=== PATIENT | male | born 1990 | race African-American/Black ===

== ENCOUNTER 2022-06-05 12:49 | Inpatient (IN) | payer OTHER ==
[2022-06-05 13:47] VITALS: BMI 21.5
[2022-06-05] MEDS ORDERED: ONDANSETRON *ODT* 4 MG TABLET SL PRN (14:54)
[2022-06-05] MEDS ORDERED: LOPERAMIDE HCL 2 MG CAPSULE PO PRN (14:54)
[2022-06-05] MEDS ORDERED: DICYCLOMINE HCL 10 MG CAPSULE PO PRN (14:54)
[2022-06-05] MEDS ORDERED: MAGNESIUM HYDROX 2400MG/30ML ORAL SUSPENSION 30 ML CUP PO PRN (14:54)
[2022-06-05] MEDS ORDERED: BISMUTH SUBSALICYLATE 262 MG/15 ML BTL PO PRN (14:54)
[2022-06-05] MEDS ORDERED: IBUPROFEN 400 MG TABLET (FP) PO PRN (14:54)
[2022-06-05] MEDS ORDERED: NICOTINE 10 MG CARTRIDGE (INHALER) IH PRN (14:54)
[2022-06-05] MEDS ORDERED: NICOTINE POLACRILEX 2 MG GUM BUC PRN (14:54)
[2022-06-05] MEDS ORDERED: IBUPROFEN 600 MG TABLET (FP) PO PRN (14:54)
[2022-06-05] MEDS ORDERED: POLYETHYLENE GLYCOL (HEALTHYLAX) 3350 17 GM PACKET PO PRN (14:54)
[2022-06-05] MEDS ORDERED: METHOCARBAMOL 500 MG TABLET PO PRN (14:54)
[2022-06-05] MEDS ORDERED: BENZOCAINE/MENTHOL (CHLORASEPTIC ) LOZENGE MM PRN (14:54)
[2022-06-05] MEDS ORDERED: ACETAMINOPHEN 325 MG TABLET (FP) PO PRN ×2 (14:54)
[2022-06-05] MEDS ORDERED: MAG HYDROX/AL HYDROX/SIMETH 30 ML UNIT-DOSE CUP PO PRN (14:54)
[2022-06-05] MEDS ORDERED: hydrOXYzine PAMOATE 25 MG CAPSULE (FP) PO PRN (14:54)
[2022-06-05] MEDS: NICOTINE 7 MG/24 HOURS TOPICAL PATCH TD SCH (15:58)
[2022-06-05] MEDS ORDERED: THIAMINE HCL 100 MG TABLET (FP) PO SCH (22:00)
[2022-06-05] MEDS ORDERED: MELATONIN 5 MG TABLETS PO SCH (22:00)
[2022-06-06] MEDS ORDERED: PRENATAL VITAMINS W/ FOLIC ACID TABLET (FP) PO SCH (10:00)
[2022-06-06] MEDS: NICOTINE 7 MG/24 HOURS TOPICAL PATCH TD SCH (10:52)
[2022-06-06 11:24] LABS: HEMATOCRIT 39.6 % (35.4-49); HEMOGLOBIN 13.3 GM/dL (11.7-16.9); MCH 29.7 pg (25.7-33.7); MCHC 33.7 g/dl (32.0-35.9); MEAN CELL VOLUME 88.2 fl (80-96); MEAN PLT VOLUME 8.1 fl (7.5-11.1); PLATELET COUNT 376 10^3/uL (134-434); RBC 4.49 M/mm3 (4.00-5.60); RDW 15.2 % (11.9-15.9); WHITE BLOOD COUNT 4.4 K/mm3 (4.0-10.0)
[2022-06-06 11:33] LABS: ALBUMIN 3.5 g/dl (3.4-5.0); BLOOD UREA NITROGEN 10.6 mg/dL (7-18); CALCIUM 8.8 mg/dL (8.5-10.1)
[2022-06-06 11:37] LABS: CREATININE 1.1 mg/dL (0.55-1.3)
[2022-06-06 11:39] LABS: BILIRUBIN,TOTAL 0.8 mg/dL (0.2-1); TOT PROT 6.2 g/dl (6.4-8.2)
[2022-06-06 12:27] LABS: HIV INTERPRETATION NEGATIVE (NEGATIVE)
[2022-06-06 12:57] VITALS: BP 111/71; PULSE 97; RESP 17; TEMP 97.8
== END 2022-06-06 01:43 | disposition other institution (70) | DRG 773 ==
LOC: YASAS 12:49 → Y3N 15:19
PROVIDERS: ADMIT Allergy & Immunology; ATTEND Surgery
PROC: HZ2ZZZZ Detoxification Services for Substance Abuse Treatment (ICD-10-PCS; principal; 2022-06-05)
DX: F15.220 Other stimulant dependence with intoxication, uncomplicated (principal); F11.20 Opioid dependence, uncomplicated; F12.20 Cannabis dependence, uncomplicated; F17.210 Nicotine dependence, cigarettes, uncomplicated; G47.00 Insomnia, unspecified; R73.9 Hyperglycemia, unspecified
CPT/HCPCS: 36415; 80053; 85027; 86593; 86780; 87389; 87811; 93005; 93010; C9803-CS; U0003; U0005

== ENCOUNTER 2022-06-06 14:51 | Inpatient (IN) | payer OTHER ==
[2022-06-06 17:06] VITALS: BMI 21.5
[2022-06-06] MEDS ORDERED: guaiFENesin 200 MG/10 ML 10 ML UNIT-DOSE CUPS PO PRN (17:36)
[2022-06-06] MEDS ORDERED: BENZOCAINE/MENTHOL (CHLORASEPTIC ) LOZENGE MM PRN (17:36)
[2022-06-06] MEDS ORDERED: IBUPROFEN 400 MG TABLET (FP) PO PRN (17:36)
[2022-06-06] MEDS ORDERED: POLYETHYLENE GLYCOL (HEALTHYLAX) 3350 17 GM PACKET PO PRN (17:36)
[2022-06-06] MEDS ORDERED: MAG HYDROX/AL HYDROX/SIMETH 30 ML UNIT-DOSE CUP PO PRN (17:36)
[2022-06-06] MEDS ORDERED: MAGNESIUM HYDROX 2400MG/30ML ORAL SUSPENSION 30 ML CUP PO PRN (17:36)
[2022-06-06] MEDS ORDERED: P-EPHED 60MG/TRIPROLIDI 2.5MG TABLET PO PRN (17:36)
[2022-06-06] MEDS ORDERED: ACETAMINOPHEN 325 MG TABLET (FP) PO PRN (17:36)
[2022-06-06] MEDS ORDERED: LOPERAMIDE HCL 2 MG CAPSULE PO PRN (17:36)
[2022-06-06] MEDS: MELATONIN 5 MG TABLETS PO PRN (21:21)
[2022-06-06] MEDS: THIAMINE HCL 100 MG TABLET (FP) PO SCH (21:21)
[2022-06-07] MEDS: PRENATAL VITAMINS W/ FOLIC ACID TABLET (FP) PO SCH (09:30)
[2022-06-07] MEDS: THIAMINE HCL 100 MG TABLET (FP) PO SCH (21:13)
[2022-06-07] MEDS: MELATONIN 5 MG TABLETS PO PRN (21:13)
[2022-06-08] MEDS: PRENATAL VITAMINS W/ FOLIC ACID TABLET (FP) PO SCH (09:53)
[2022-06-08] MEDS: MELATONIN 5 MG TABLETS PO PRN (21:18)
[2022-06-08] MEDS: THIAMINE HCL 100 MG TABLET (FP) PO SCH (21:18)
[2022-06-09] MEDS: PRENATAL VITAMINS W/ FOLIC ACID TABLET (FP) PO SCH (10:55)
[2022-06-09] MEDS ORDERED: COLLOIDAL OATMEAL 1 BAR EACH TP PRN (12:51)
[2022-06-09] MEDS: THIAMINE HCL 100 MG TABLET (FP) PO SCH (21:13)
[2022-06-09] MEDS: MELATONIN 5 MG TABLETS PO PRN (21:13)
[2022-06-10 06:57] VITALS: BP 112/80; PULSE 85; RESP 16; TEMP 97.9
[2022-06-10] MEDS: PRENATAL VITAMINS W/ FOLIC ACID TABLET (FP) PO SCH (09:20)
== END 2022-06-10 17:00 | disposition home or self-care (01) | DRG 772 ==
LOC: YASAS 14:51 → Y3E 16:58
PROVIDERS: ADMIT Allergy & Immunology; ATTEND Allergy & Immunology
PROC: HZ42ZZZ Group Counseling for Substance Abuse Treatment, Cognitive-Behavioral (ICD-10-PCS; principal; 2022-06-06)
DX: F15.20 Other stimulant dependence, uncomplicated (principal); F11.20 Opioid dependence, uncomplicated; F17.210 Nicotine dependence, cigarettes, uncomplicated; F32.A Depression, unspecified; F41.9 Anxiety disorder, unspecified; G47.00 Insomnia, unspecified; B35.3 Tinea pedis; R73.9 Hyperglycemia, unspecified; Z86.19 Personal history of other infectious and parasitic diseases
CPT/HCPCS: 82962

== ENCOUNTER 2023-01-02 13:12 | Inpatient (IN) | payer OTHER ==
[2023-01-02 13:25] VITALS: BMI 21.5
[2023-01-03] MEDS ORDERED: BENZONATATE 200 MG CAPSULE PO PRN (00:38)
[2023-01-03] MEDS ORDERED: NALOXONE HCL 0.4 MG/ML VIAL IM PRN (00:38)
[2023-01-03] MEDS ORDERED: LOPERAMIDE HCL 2 MG CAPSULE PO PRN (00:38)
[2023-01-03] MEDS ORDERED: NALOXONE HCL (KLOXXADO) 8 MG SPRAY NS PRN (00:38)
[2023-01-03] MEDS ORDERED: IBUPROFEN 600 MG TABLET (FP) PO PRN (00:38)
[2023-01-03] MEDS ORDERED: MAG HYDROX/AL HYDROX/SIMETH 30 ML UNIT-DOSE CUP PO PRN (00:38)
[2023-01-03] MEDS ORDERED: POLYETHYLENE GLYCOL (HEALTHYLAX) 3350 17 GM PACKET PO PRN (00:38)
[2023-01-03] MEDS ORDERED: AMMONIUM LACTATE 12% LOTION 225 GM BOTTLE TP PRN (00:38)
[2023-01-03] MEDS ORDERED: guaiFENesin 600 MG TABLET.ER (FP) PO PRN (00:38)
[2023-01-03] MEDS ORDERED: ACETAMINOPHEN 325 MG TABLET (FP) PO PRN (00:38)
[2023-01-03] MEDS ORDERED: COLLOIDAL OATMEAL 1 BAR EACH TP PRN (00:38)
[2023-01-03] MEDS ORDERED: BENZOCAINE/MENTHOL (CHLORASEPTIC ) LOZENGE MM PRN (00:38)
[2023-01-03] MEDS ORDERED: hydrOXYzine PAMOATE 25 MG CAPSULE (FP) PO PRN (00:38)
[2023-01-03] MEDS ORDERED: MAGNESIUM HYDROX 2400MG/30ML ORAL SUSPENSION 30 ML CUP PO PRN (00:38)
[2023-01-03] MEDS ORDERED: IBUPROFEN 400 MG TABLET (FP) PO PRN (00:38)
[2023-01-03 10:36] LABS: PH,URINE 5.5 (5.0-8.0); URINE APPEARANCE CLEAR; URINE BILIRUBIN NEGATIVE (NEGATIVE); URINE COLOR YELLOW; URINE GLUCOSE (UA) NEGATIVE (NEGATIVE); URINE KETONE NEGATIVE (NEGATIVE); URINE LEUK ESTERASE NEGATIVE (NEGATIVE); URINE NITRITE NEGATIVE (NEGATIVE); URINE PROTEIN NEGATIVE (NEGATIVE)
[2023-01-03 10:46] LABS: HEMATOCRIT 41.5 % (35.4-49); HEMOGLOBIN 14.3 GM/dL (11.7-16.9); MCHC 34.4 g/dl (32.0-35.9); MEAN CELL VOLUME 87.3 fl (80-96); MEAN PLT VOLUME 8.3 fl (7.5-11.1); PLATELET COUNT 269 10^3/uL (134-434); RBC 4.76 M/mm3 (4.00-5.60); RDW 14.8 % (11.9-15.9)
[2023-01-03] MEDS: PRENATAL VITAMINS W/ FOLIC ACID TABLET (FP) PO SCH (10:51)
[2023-01-03 10:53] LABS: POTASSIUM 4.4 mmol/L (3.5-5.1)
[2023-01-03 11:00] LABS: ALBUMIN 3.4 g/dl (3.4-5.0); BLOOD UREA NITROGEN 11.5 mg/dL (7-18); CALCIUM 8.8 mg/dL (8.5-10.1)
[2023-01-03 11:04] LABS: CREATININE 0.9 mg/dL (0.55-1.3)
[2023-01-03 11:05] LABS: TOT PROT 6.4 g/dl (6.4-8.2)
[2023-01-03 11:46] LABS: SYPHILIS W/ RPR CONF REACTIVE (NONREACTIVE)
[2023-01-03] MEDS: MELATONIN 5 MG TABLETS PO SCH (21:48)
[2023-01-03] MEDS: THIAMINE HCL 100 MG TABLET (FP) PO SCH (21:49)
[2023-01-04] MEDS: PRENATAL VITAMINS W/ FOLIC ACID TABLET (FP) PO SCH (10:16)
[2023-01-04] MEDS: MELATONIN 5 MG TABLETS PO SCH (21:35)
[2023-01-04] MEDS: THIAMINE HCL 100 MG TABLET (FP) PO SCH (21:35)
[2023-01-05] MEDS: PRENATAL VITAMINS W/ FOLIC ACID TABLET (FP) PO SCH (09:56)
[2023-01-05] MEDS: MELATONIN 5 MG TABLETS PO SCH (21:40)
[2023-01-05] MEDS: THIAMINE HCL 100 MG TABLET (FP) PO SCH (21:40)
[2023-01-06 07:39] VITALS: BP 100/61; PULSE 61; RESP 20; TEMP 98.1
[2023-01-06] MEDS: PRENATAL VITAMINS W/ FOLIC ACID TABLET (FP) PO SCH (10:47)
== END 2023-01-06 16:07 | disposition left against medical advice (07) | DRG 770 ==
LOC: YASAS 13:12 → Y5N 23:39
PROVIDERS: ADMIT Allergy & Immunology; ATTEND Psychiatry & Neurology Pain Medicine
PROC: HZ42ZZZ Group Counseling for Substance Abuse Treatment, Cognitive-Behavioral (ICD-10-PCS; principal; 2023-01-02)
DX: F15.20 Other stimulant dependence, uncomplicated (principal); F10.20 Alcohol dependence, uncomplicated; F17.210 Nicotine dependence, cigarettes, uncomplicated; F19.282 Other psychoactive substance dependence with psychoactive substance-induced sleep disorder; F41.1 Generalized anxiety disorder
CPT/HCPCS: 36415; 80053; 81003; 85027; 86593; 86780; 86803; 87635

== ENCOUNTER 2024-01-21 13:43 | Inpatient (IN) | payer OTHER ==
[2024-01-21] MEDS ORDERED: BENZONATATE 200 MG CAPSULE PO PRN (15:01)
[2024-01-21] MEDS ORDERED: BENZOCAINE/MENTHOL (CHLORASEPTIC ) LOZENGE MM PRN (15:01)
[2024-01-21] MEDS ORDERED: guaiFENesin 600 MG TABLET.ER (FP) PO PRN (15:01)
[2024-01-21] MEDS ORDERED: ONDANSETRON *ODT* 4 MG TABLET SL PRN (15:01)
[2024-01-21] MEDS ORDERED: BISMUTH SUBSALICYLATE 262 MG/15 ML BTL PO PRN (15:01)
[2024-01-21] MEDS ORDERED: NALOXONE (NARCAN) HCL 4 MG/0.1 ML SPRAY NS PRN (15:01)
[2024-01-21] MEDS ORDERED: IBUPROFEN 600 MG TABLET (FP) PO PRN (15:01)
[2024-01-21] MEDS ORDERED: ACETAMINOPHEN 325 MG TABLET (FP) PO PRN (15:01)
[2024-01-21] MEDS ORDERED: POLYETHYLENE GLYCOL (HEALTHYLAX) 3350 17 GM PACKET PO PRN (15:01)
[2024-01-21] MEDS ORDERED: DICYCLOMINE HCL 10 MG CAPSULE PO PRN (15:01)
[2024-01-21] MEDS ORDERED: MAGNESIUM HYDROX 2400MG/30ML ORAL SUSPENSION 30 ML CUP PO PRN (15:01)
[2024-01-21] MEDS ORDERED: MAG HYDROX/AL HYDROX/SIMETH 30 ML UNIT-DOSE CUP PO PRN (15:01)
[2024-01-21] MEDS ORDERED: IBUPROFEN 400 MG TABLET (FP) PO PRN (15:01)
[2024-01-21] MEDS ORDERED: METHOCARBAMOL 500 MG TABLET PO PRN (15:01)
[2024-01-21] MEDS ORDERED: NALOXONE HCL 0.4 MG/ML VIAL IM PRN (15:01)
[2024-01-21] MEDS ORDERED: LOPERAMIDE HCL 2 MG CAPSULE PO PRN (15:01)
[2024-01-21] MEDS: THIAMINE 100 MG TABLET PO SCH (22:13)
[2024-01-21] MEDS: MELATONIN 5 MG TABLETS PO SCH (22:13)
[2024-01-21] MEDS: hydrOXYzine PAMOATE 25 MG CAPSULE (FP) PO PRN (22:13)
[2024-01-22] MEDS ORDERED: chlordiazePOXIDE HCL 25 MG CAPSULE PO PRN (08:53)
[2024-01-22] MEDS: DOLUTEGRAVIR SODIUM 50 MG TABLET (NON-FORMULARY) PO SCH (10:00)
[2024-01-22] MEDS: PRENATAL VITAMINS W/ FOLIC ACID TABLET (FP) PO SCH (10:00)
[2024-01-22] MEDS ORDERED: EMTRICITABINE 200MG/TENOFOVIR 300MG PO SCH (10:00)
[2024-01-22] MEDS ORDERED: DOLUTEGRAVIR SODIUM 50 MG TABLET (NON-FORMULARY) PO SCH (10:00)
[2024-01-22] MEDS ORDERED: valACYclovir HCL 500 MG TABLET (FP) PO SCH (10:00)
[2024-01-22] MEDS: valACYclovir HCL 500 MG TABLET (FP) PO SCH (10:01)
[2024-01-22] MEDS: TOPIRAMATE 25 MG TABLET PO SCH (10:01)
[2024-01-22] MEDS: EMTRICITABINE 200MG/TENOFOVIR 300MG PO SCH (10:01)
[2024-01-22] MEDS: chlordiazePOXIDE HCL 25 MG CAPSULE PO SCH (10:02)
[2024-01-22 13:54] LABS: HEMATOCRIT 42.1 % (35.4-49); HEMOGLOBIN 14.4 GM/dL (11.7-16.9); MCH 29.9 pg (25.7-33.7); MCHC 34.1 g/dl (32.0-35.9); MEAN CELL VOLUME 87.8 fl (80-96); MEAN PLT VOLUME 8.2 fl (7.5-11.1); PLATELET COUNT 345 10^3/uL (134-434); RDW 14.6 % (11.9-15.9); WHITE BLOOD COUNT 3.5 K/mm3 (4.0-10.0)
[2024-01-22 13:57] LABS: CHLORIDE 105 mmol/L (98-107); POTASSIUM 4.3 mmol/L (3.5-5.1); SODIUM 137 mmol/L (136-145)
[2024-01-22 14:09] LABS: ANION GAP 3 mmol/L (4-13); CALCIUM 9.4 mg/dL (8.5-10.1); CO2 29 mmol/L (21-32); CREATININE 0.9 mg/dL (0.55-1.3); GLUCOSE,RANDOM 97 mg/dL (74-106); SGPT/ALT 24 U/L (13-61)
[2024-01-22 14:11] LABS: BILIRUBIN,TOTAL 0.8 mg/dL (0.2-1); TOT PROT 6.8 g/dl (6.4-8.2)
[2024-01-22 14:12] LABS: ALBUMIN 3.7 g/dl (3.4-5.0); ALK PHOS 64 U/L (45-117); SGOT/AST 14 U/L (15-37)
[2024-01-22 17:03] LABS: HIV INTERPRETATION NEGATIVE (NEGATIVE)
[2024-01-23] MEDS: PENICILLIN G BENZATHINE 2,400,000 UNIT/4 ML PFS IM ONE (14:53)
[2024-01-24] MEDS: chlordiazePOXIDE HCL 25 MG CAPSULE PO SCH (05:30)
[2024-01-24] MEDS: LACTULOSE 20 GM/30 ML UDC (FOR ORAL USE ONLY) PO SCH (10:28)
[2024-01-25] MEDS ORDERED: chlordiazePOXIDE HCL 10 MG CAPSULE PO PRN
[2024-01-25] MEDS: chlordiazePOXIDE HCL 10 MG CAPSULE PO SCH (05:40)
[2024-01-25] MEDS: NALOXONE (NYS OPIOID OVERDOSE PROGRAM) 4 MG/0.1 ML SPRAY NS ONE (15:17)
[2024-01-26] MEDS: chlordiazePOXIDE HCL 10 MG CAPSULE PO SCH (05:58)
[2024-01-27] MEDS: chlordiazePOXIDE HCL 10 MG CAPSULE PO ONE (05:45)
[2024-01-28 06:24] VITALS: RESP 16; TEMP 97.7
[2024-01-28 09:44] VITALS: BP 114/68; PULSE 79
[2024-01-28] MEDS: NALOXONE (NYS OPIOID OVERDOSE PROGRAM) 4 MG/0.1 ML SPRAY NS PRN (12:42)
== END 2024-01-28 12:43 | disposition home or self-care (01) | DRG 774 ==
LOC: YASAS 13:43 → Y6N 15:06
PROVIDERS: ADMIT Allergy & Immunology; ATTEND Surgery
PROC: HZ2ZZZZ Detoxification Services for Substance Abuse Treatment (ICD-10-PCS; principal; 2024-01-21)
DX: F10.230 Alcohol dependence with withdrawal, uncomplicated (principal); F14.20 Cocaine dependence, uncomplicated; F15.20 Other stimulant dependence, uncomplicated; F12.20 Cannabis dependence, uncomplicated; F17.210 Nicotine dependence, cigarettes, uncomplicated; E72.20 Disorder of urea cycle metabolism, unspecified; Z21 Asymptomatic human immunodeficiency virus [HIV] infection status; A60.01 Herpesviral infection of penis; R76.8 Other specified abnormal immunological findings in serum; Z86.19 Personal history of other infectious and parasitic diseases; Z59.01 Sheltered homelessness
CPT/HCPCS: 36415; 80053; 80305; 80307; 82140; 85027; 86593; 86780; 86803; 87389; 93005; 93010

== ENCOUNTER 2025-01-11 14:21 | Inpatient (IN) | payer OTHER ==
[2025-01-11 13:30] VITALS: BMI 21.2
[2025-01-11] MEDS ORDERED: BENZONATATE 200 MG CAPSULE PO PRN (14:34)
[2025-01-11] MEDS ORDERED: BENZOCAINE/MENTHOL (CHLORASEPTIC ) LOZENGE MM PRN (14:34)
[2025-01-11] MEDS ORDERED: ACETAMINOPHEN 325 MG TABLET (FP) PO PRN (14:34)
[2025-01-11] MEDS ORDERED: LOPERAMIDE HCL 2 MG CAPSULE PO PRN (14:34)
[2025-01-11] MEDS ORDERED: POLYETHYLENE GLYCOL (HEALTHYLAX) 3350 17 GM PACKET PO PRN (14:34)
[2025-01-11] MEDS ORDERED: NALOXONE (NARCAN) HCL 4 MG/0.1 ML SPRAY NS PRN (14:34)
[2025-01-11] MEDS ORDERED: IBUPROFEN 400 MG TABLET (FP) PO PRN (14:34)
[2025-01-11] MEDS ORDERED: MAGNESIUM HYDROX 2400MG/30ML ORAL SUSPENSION 30 ML CUP PO PRN (14:34)
[2025-01-11] MEDS ORDERED: IBUPROFEN 600 MG TABLET (FP) PO PRN (14:34)
[2025-01-11] MEDS ORDERED: MAG HYDROX/AL HYDROX/SIMETH 30 ML UNIT-DOSE CUP PO PRN (14:34)
[2025-01-11] MEDS ORDERED: guaiFENesin 600 MG TABLET.ER (FP) PO PRN (14:34)
[2025-01-11] MEDS ORDERED: TUBERCULIN PPD 5 TU/0.1ML SYRINGE (IN PATIENT USE ONLY) ID ONE (18:36)
[2025-01-11] MEDS: MELATONIN 5 MG TABLETS PO SCH (22:55)
[2025-01-11] MEDS: THIAMINE 100 MG TABLET PO SCH (22:55)
[2025-01-12] MEDS: hydrOXYzine PAMOATE 25 MG CAPSULE (FP) PO PRN (01:37)
[2025-01-12] MEDS: EMTRICITABINE 200MG/TENOFOVIR 300MG PO SCH (08:05)
[2025-01-12] MEDS: DOLUTEGRAVIR SODIUM 50 MG TABLET (NON-FORMULARY) PO SCH (08:05)
[2025-01-12 08:52] LABS: MCHC 32.6 g/dl (32.3-36.5); MEAN CELL VOLUME 90.5 fl (79.0-92.2); MEAN PLT VOLUME 10.3 fl (9.4-12.4); RDW 14.1 % (12.0-15.6)
[2025-01-12 10:23] LABS: GLUCOSE,RANDOM 105 mg/dL (74-106); TOT PROT 6.2 g/dl (6.4-8.2)
[2025-01-12 10:24] LABS: CO2 25 mmol/L (21-32)
[2025-01-12 10:26] LABS: ALK PHOS 55 U/L (40-150)
[2025-01-12 10:28] LABS: CREATININE 0.92 mg/dL (0.55-1.3); SGOT/AST 20 U/L (5-34); SGPT/ALT 32 U/L (0-55)
[2025-01-12] MEDS: PRENATAL VITAMINS W/ FOLIC ACID TABLET (FP) PO SCH (10:46)
[2025-01-12 13:22] LABS: HCV DIAGNOSTIC IN-HOUSE W/RFLX NON-REACTIVE (NONREACTIVE)
[2025-01-12 14:22] LABS: SYPHILIS W/ RPR CONF REACTIVE (NONREACTIVE)
[2025-01-12 14:51] LABS: RPR REFLEX REACTIVE 1:1 (NONREACTIVE)
[2025-01-12 20:30] LABS: EPI CELLS 2 /uL (0-25.1); HYALINE CASTS 3 /uL (0-3.1); URINE APPEARANCE CLOUDY; URINE BACTERIA >9,000 /uL (0-1359); URINE BILIRUBIN NEGATIVE (NEGATIVE); URINE COLOR YELLOW; URINE GLUCOSE (UA) NEGATIVE (NEGATIVE); URINE KETONE TRACE (NEGATIVE); URINE LEUK ESTERASE 1+ (NEGATIVE); URINE NITRITE POSITIVE (NEGATIVE); URINE PROTEIN NEGATIVE (NEGATIVE); URINE RBC 13 /uL (0-23.9); URINE UROBILINOGEN 1.0 mg/dL (0.2-1.0); URINE WBC 121 /uL (0-25.8)
[2025-01-14 12:38] VITALS: RESP 17
[2025-01-14 16:57] VITALS: BP 116/79; PULSE 99; TEMP 97.8
[2025-01-15] MEDS ORDERED: EMTRICITABINE 200MG/TENOFOVIR 300MG PO SCH (07:00)
[2025-01-15] MEDS ORDERED: DOLUTEGRAVIR SODIUM 50 MG TABLET (NON-FORMULARY) PO SCH (07:00)
== END 2025-01-14 17:15 | disposition left against medical advice (07) | DRG 770 ==
LOC: YASAS 14:21 → Y3NR 19:38 → Y5N 01-12 11:46 → Y3E 01-14 12:23
PROVIDERS: ADMIT Psychiatry & Neurology Pain Medicine; ATTEND Psychiatry & Neurology Pain Medicine
PROC: HZ2ZZZZ Detoxification Services for Substance Abuse Treatment (ICD-10-PCS; principal; 2025-01-11)
DX: F10.20 Alcohol dependence, uncomplicated (principal); F15.20 Other stimulant dependence, uncomplicated; F14.20 Cocaine dependence, uncomplicated; F12.20 Cannabis dependence, uncomplicated; F39 Unspecified mood [affective] disorder; Z21 Asymptomatic human immunodeficiency virus [HIV] infection status; G47.00 Insomnia, unspecified; R79.89 Other specified abnormal findings of blood chemistry; Z79.899 Other long term (current) drug therapy; Z87.891 Personal history of nicotine dependence
CPT/HCPCS: 36415; 80053; 80307; 81003; 85027; 86593; 86780; 86803; 93005; 93010